=== PATIENT | male | born 1995 | race Hispanic/Latino ===

== ENCOUNTER 2021-07-19 13:00 | Emergency (ER) | payer SELFPAY ==
[2021-07-19 13:05] VITALS: BP 147/81; PULSE 88; RESP 16; TEMP 36.5; O2SAT 97
--- NOTE | 2021-07-19 13:55 | ED.EAR ---
HPI - Ear Problem General Chief complaint: Ear Stated complaint: earache Time Seen by Provider: 07/19/21 13:22 Source: patient and RN notes reviewed Mode of arrival: ambulatory Limitations: language barrier ([place] speaking, used biological chemist) History of Present Illness HPI Narrative: This is a 25 year old male who presents for evaluation of bilateral ear pain. He developed pain on Friday. HE is having constant throbbing pain for 2 days. He denies any drainage. He has been trying over the counter ear drops without any relief of his pain. He denies fever but he is reporting chills. He denies sore throat, cough, runny nose. He denies history of putting anything in his ear. He denies dental pain or issues at this point. Related Data Allergies Allergy/AdvReac Type Severity Reaction Status Date / Time No Known Allergies Allergy Verified 07/19/21 13:08 Review of Systems Review of Systems: All systems reviewed & are unremarkable except as noted in HPI and below PMFSH Past Medical History Medical History (Updated 07/19/21 @ 14:05 by Karo Allison MD) Patient denies medical problems Surgical History Surgical History (Updated 07/19/21 @ 13:59 by Karo Allison MD) No pertinent past surgical history Social History Social History (Updated 07/19/21 @ 13:59 by Karo Allison MD) Smoking status: Current every day smoker Exam Const: General: no acute distress and alert Nutritional Appearance: obese Orientation/consciousness: patient oriented x3 HENMT: Head: normocephalic and atraumatic Ears: external ear abnormal (yellow discarge bilateral ear, no perforation seen) auricular tenderness and pain with movement of external ear and TM abnormal dull bilateral and erythematous bilateral Face and sinus: sinuses nontender and face symmetric Mouth: Yes Normal oral and palatal mucosa present, Yes lip normal, Yes tongue normal, Yes oropharynx normal and Yes moist mucous membranes Teeth and gingiva: fair dentition Throat: posterior oropharynx normal, tonsils normal and uvula midline Eyes: EOM: EOMs intact bilaterally Neck: Neck: normal visual inspection Chest: Chest palpation & inspection: normal inspection of the chest Resp: Effort & Inspection: normal respiratory effort and no retractions Auscultation: clear to auscultation bilaterally Cardio: Rate: regular rate Rhythm: regular rhythm Heart sounds: no murmurs Skin: General skin exam: normal color Rashes: no rashes Neuro: General: patient oriented x3, moves all extremities and CN's II-XI intact bilaterally Course Reevaluation(s) Reevaluation #1: I discussed with patient treatment plan to discharge with PO antibiotics and drops. I answered all questions using video biological chemist. Date: 07/19/21 Time: 14:01 Vital Signs Vital signs: Vital Signs Temperature 97.7 F 07/19/21 13:05 Pulse Rate 88 07/19/21 13:05 Respiratory Rate 16 07/19/21 13:05 Blood Pressure 147/81 H 07/19/21 13:05 Pulse Oximetry 97 07/19/21 13:05 Temperature 97.7 F 07/19/21 13:05 Pulse Rate 88 07/19/21 13:05 Respiratory Rate 16 07/19/21 13:05 Blood Pressure 147/81 H 07/19/21 13:05 Pulse Oximetry 97 07/19/21 13:05 Medical Decision Making Vital Signs Vital Signs: Vital Signs Temperature 97.7 F 07/19/21 13:05 Pulse Rate 88 07/19/21 13:05 Respiratory Rate 16 07/19/21 13:05 Blood Pressure 147/81 H 07/19/21 13:05 Pulse Oximetry 97 07/19/21 13:05 Temperature 97.7 F 07/19/21 13:05 Pulse Rate 88 07/19/21 13:05 Respiratory Rate 16 07/19/21 13:05 Blood Pressure 147/81 H 07/19/21 13:05 Pulse Oximetry 97 07/19/21 13:05 Discharge Plan Discharge Clinical Impression: Bilateral otitis externa Bilateral otitis media Qualifiers: Otitis media type: unspecified Qualified Code(s): H66.93 - Otitis media, unspecified, bilateral Patient Disposition: Home, Self-Care Condition: Stable Instructions: Antibi
[2021-07-19] MEDS: IBUPROFEN 400 MG TABLET 800 MG PO (14:14)
== END 2021-07-19 14:17 | disposition home or self-care (01) ==
PROVIDERS: Emergency Provider General Practice
DX: H60.93 Unspecified otitis externa, bilateral (principal); H66.93 Otitis media, unspecified, bilateral; F17.200 Nicotine dependence, unspecified, uncomplicated
CPT/HCPCS: 99283; A9270